=== PATIENT | female | born 1975 | race Caucasian/White ===

== ENCOUNTER 2017-05-10 22:47 | Emergency (ER) | payer MEDICAID, OTHER ==
[~2017-05-10] VITALS: Ht 160 cm; Wt 84.3 kg
[2017-05-10 22:57] VITALS: Ht 160 cm; Wt 84.3 kg
--- NOTE | 2017-05-10 23:53 | ERD ---
ER Documentation Chief Complaint Chief Complaint MOTT on l side of head HPI 41-year-old female sent in emergency department for complaints of a bump rash on the left scalp area and pain that started this morning, the patient describes the pain as sharp pain, 10/10 scale, as was upon touching the area. Patient does not have any other rash in other parts of the body. Patient did not have any head injury. Patient without any nausea or vomiting. Patient does not have any blurry vision. Patient did not take any medications to help with symptoms. Patient denies any fever or chills ROS All systems reviewed and are negative except as per history of present illness. Medications Home Meds Reported Medications [none] Unknown Strength No Conflict Check 05/10/17 Allergies Allergies: Coded Allergies: No Known Drug Allergies (Verified Allergy, Unknown, 04/29/14) PMhx/Soc Medical and Surgical Hx: pt denies Medical Hx, pt denies Surgical Hx Hx Alcohol Use: No Hx Substance Use: No Hx Tobacco Use: No Smoking Status: Never smoker FmHx Family History: No coronary disease, No diabetes, No other Physical Exam Vitals Vital Signs Date Time Temp Pulse Resp B/P Pulse Ox O2 Delivery O2 Flow Rate FiO2 05/10/17 22:57 98.3 74 16 167/93 100 Physical Exam GENERAL: The patient is well developed and appropriate for usual state of health, in no apparent distress. CHEST: Clear to auscultation bilaterally. There are no rales, wheezes or rhonchi. HEART: Regular rate and rhythm. No murmurs, clicks, rubs or gallops. No S3 or S4. ABDOMEN: Soft, nontender and nondistended. Good bowel sounds. No rebound or guarding. No gross peritonitis. No gross organomegaly or masses. No Painter sign or McBurney point tenderness. BACK: No midline or flank tenderness. EXTREMITIES: Equal pulses bilaterally. There is no peripheral clubbing, cyanosis or edema. No focal swelling or erythema. Full range of motion. Grossly neurovascularly intact. NEURO: Alert and oriented. Cranial nerves 2-12 intact. Motor strength in all 4 extremities with 5/5 strength. Sensation grossly intact. Normal speech and gait. SKIN: Vesicular rash noted in the left scalp area, tender on palpation. There is no apparent ecchymosis or petechia. The skin is warm and dry. HEMATOLOGIC AND LYMPHATIC: There is no evidence of excessive bruising or lymphedema. No gross cervical, axillary, or inguinal lymphadenopathy. Results 24 hrs Current Medications Medications (Trade) Dose Ordered Sig/Dawn Route PRN Reason Start Time Stop Time Status Last Admin Dose Admin Acetaminophen/ Hydrocodone Bitart (Bern (10/)) 1 tab ONCE ONCE PO 05/11/17 00:00 05/11/17 00:01 05/10/17 23:55 Patient was given medication for pain here in emergency department, after treatment, patient verbalized feeling much better. Patient's pain is improved. My attending physician, Dr. Lazcano, evaluated patient's rash, consistent with shingles. Patient will be treated appropriately at this time. Procedures/MDM Medical decision making: Patient symptoms was likely is consistent with herpes zoster shingles, no symptoms of any eye involvement at this time, no symptoms of any ear involvement at this time. Patient will be given acyclovir, gabapentin, Bern, was advised to follow-up with primary care doctor in 2 days for reevaluation of symptoms. Patient was advised to return to emergency department for any worsening symptoms. Disposition: Home. Stable Departure Diagnosis: Primary Impression: Herpes zoster Herpes zoster complications: without complications Qualified Code: B02.9 - Herpes zoster without complication Condition: Stable Patient Instructions: Herpes Zoster SHIRLEY LYNCH NP May 10, 2017 23:53
[2017-05-11] MEDS ORDERED: HYDROCODONE/APAP (10/325) TAB PO ONE
[2017-05-11] MEDS ORDERED: HYDR-902 PO (00:03)
[2017-05-11] MEDS ORDERED: ACYC800T57 PO (00:03)
[2017-05-11] MEDS ORDERED: IBUP-1542 PO (00:03)
[2017-05-11] MEDS ORDERED: GABA300C16 PO (00:03)
[2017-05-11 01:15] VITALS: BP 121/71; PULSE 64; RESP 16; TEMP 97.8
== END 2017-05-11 01:25 | disposition home or self-care (01) ==
LOC: FTE 22:47
DX: B02.9 Zoster without complications (principal); R40.2252 Coma scale, best verbal response, oriented, at arrival to emergency department; R40.2142 Coma scale, eyes open, spontaneous, at arrival to emergency department; R40.2362 Coma scale, best motor response, obeys commands, at arrival to emergency department
CPT/HCPCS: Z7502; Z7610; 99284

== ENCOUNTER 2017-07-21 20:54 | Emergency (ER) | END 2017-07-22 00:40 | disposition home or self-care (01) ==

== ENCOUNTER 2017-10-22 20:13 | Emergency (ER) | END 2017-10-22 22:00 | disposition home or self-care (01) ==

== ENCOUNTER 2018-02-17 13:01 | Emergency (ER) | END 2018-02-17 14:41 | disposition home or self-care (01) ==

== ENCOUNTER 2018-07-30 15:31 | Emergency (ER) | payer MEDICAID ==
[~2018-07-30] VITALS: Wt 82.8 kg
[~2018-07-30 15:31] MED LIST: ACYC800T5 PO; CEPH-443 PO; GABA300C16 PO; HYDR-3980 PO; IBUP-1542 PO; NAPR-985 PO; SULF1TAB31 PO
[2018-07-30] MEDS ORDERED: NEOM28OI2 TP (18:45)
[2018-07-30] MEDS ORDERED: DOCU-144 PO (18:45)
[2018-07-30] MEDS ORDERED: TRAM50TA2 PO (18:45)
--- NOTE | 2018-07-30 18:48 | ERD ---
ER Documentation Chief Complaint Chief Complaint PAIN ON RECTUM DURING BOWEL MOVEMENT X4 DAYS, NO BLEEDING HPI 42-year-old female presents with rectal pain with bowel movements last 4 days patient has bleeding, fevers, discharge. She denies. She admits to a history of constipation. ROS All systems reviewed and are negative except as per history of present illness. Medications Home Meds Active Scripts Tramadol HCl (Tramadol HCl) 50 Mg Tablet, 50 MG PO Q4 PRN for PAIN, #15 TAB Prov:DENISE DENISE MD 07/30/18 Docusate Sodium* (Colace*) 100 Mg Capsule, 100 MG PO BID, #30 CAP Prov:DENISE DENISE MD 07/30/18 Neomycin Turner/Bacitrac Zn/Poly (Triple Antibiotic Ointment) 28 Gm Oint...g., 28 GM TP TID for 7 Days Prov:DENISE DENISE MD 07/30/18 Naproxen* (Naprosyn*) 500 Mg Tablet, 500 MG PO BID PRN for PAIN AND/OR INFLAMMATION, #30 TAB Prov:JOAQUÍN RAND PA-C 02/17/18 Sulfamethoxazole/Trimethoprim* (Bactrim Ds* Tablet) 1 Each Tablet, 1 TAB PO BID, #14 TAB Prov:DEDRA PAYAN 10/22/17 Ibuprofen* (Motrin*) 600 Mg Tab, 600 MG PO Q6, #30 TAB Prov:DEDRA PAYAN 10/22/17 Cephalexin* (Keflex*) 500 Mg Capsule, 500 MG PO BID for 7 Days, CAP Prov:DEDRA PAYAN 10/22/17 Ibuprofen* (Motrin*) 600 Mg Tab, 600 MG PO Q6, #30 TAB Prov:ILSA WAKEFIELD-C 07/21/17 Cephalexin* (Keflex*) 500 Mg Capsule, 500 MG PO TID for 7 Days, CAP Prov:ILSA WAKEFIELD-C 07/21/17 Hydrocodone/Acetaminophen ([place] 10-325 Tablet) 1 Each Tablet, 1 TAB PO Q6H PRN for SEVERE PAIN LEVEL 7-10, #20 TAB Prov:SHIRLEY LYNCH NP 05/11/17 Ibuprofen* (Motrin*) 600 Mg Tab, 600 MG PO Q6H PRN for PAIN AND OR ELEVATED TEMP, #30 TAB Prov:SHIRLEY LYNCHMichael MCKAY 05/11/17 Gabapentin* (Gabapentin*) 300 Mg Capsule, 300 MG PO BID, #60 CAP Prov:SHIRLEY LYNCHMichael MCKAY 05/11/17 Acyclovir* (Zovirax*) 800 Mg Tablet, 800 MG PO 5 TIMES DAILY for 7 Days, TAB Prov:SHIRLEY LYNCHMichael MCKAY 05/11/17 Reported Medications [none] Unknown Strength No Conflict Check 05/10/17 Allergies Allergies: Coded Allergies: No Known Drug Allergies (Verified Allergy, Unknown, 04/29/14) PMhx/Soc History of Surgery: No Anesthesia Reaction: No Hx Neurological Disorder: No Hx Respiratory Disorders: No Hx Cardiac Disorders: No Hx Psychiatric Problems: No Hx Miscellaneous Medical Probl: No Hx Alcohol Use: Yes (occasionally) Hx Substance Use: No Hx Tobacco Use: No FmHx Family History: No diabetes, No coronary disease, No other Physical Exam Vitals Vital Signs Date Temp Pulse Resp B/P (MAP) Pulse Ox O2 O2 Flow FiO2 Time Delivery Rate 07/30/18 98.2 63 20 145/85 99 Room Air 19:06 (105) 07/30/18 98.3 71 16 150/78 99 15:42 (102) Physical Exam Const: No acute distress Head: Atraumatic Eyes: Normal Conjunctiva ENT: Normal External Ears, Nose and Mouth. Neck: Full range of motion. No meningismus. Resp: Clear to auscultation bilaterally Cardio: Regular rate and rhythm, no murmurs Abd: Soft, non tender, non distended. Normal bowel sounds. Rectal exam with cracking machine operator shows a small fissure with granulating tissue but there is no erythema, fluctuance, discharge. Skin: No petechiae or rashes Back: No midline or flank tenderness Ext: No cyanosis, or edema Neur: Awake and alert Psych: Normal Mood and Affect Procedures/MDM Patient presents with signs and symptoms of an anal fissure without signs of infection, active bleeding. Herpetic lesion is certainly a possibility although fissure appears more likely. She will be treated with topical antibiotic cream, Colace, tramadol, instructions for warm soaks, primary care follow-up and return precautions. No evidence of abscess, obstruction, additional concerning signs or symptoms. The patient was stable with no new complaints during the ER course. Clinically, there is no current evidence to suggest meningitis, sepsis, acute abdomen, pneumonia, stroke, acute coronary syndrome, pulmonary embolism, aortic dissection or any other emergent condition appearing to require further evaluation or hospitalization. Patient counseled regarding my diagnostic impression and care plan. Prior to discharge all questions answered. Pt agrees with treatment plan and understands strict return precautions. Pt is instructed to follow up with primary care provider within 24-48 hours. Precautionary instructions provided including instructions to return to the ER if not improving or for any worsening or changing symptoms or concerns. Departure Diagnosis: Primary Impression: Anal fissure Condition: Stable Patient Instructions: Anal Fissure (Child) Additional Instructions: siente en agua tibia. Examines normal hoy. Cheque otro vez con turner doctor primario en el proximo yancey or regresa para mas o nueva simptomas. DENISE DENISE MD Jul 30, 2018 18:48
[2018-07-30 19:06] VITALS: BP 145/85; PULSE 63; RESP 20
== END 2018-07-30 19:08 | disposition home or self-care (01) ==
LOC: FTE 15:31
DX: K60.2 Anal fissure, unspecified (principal)
CPT/HCPCS: 99284

== ENCOUNTER 2018-12-20 08:01 | Emergency (ER) | payer MEDICAID ==
[~2018-12-20] VITALS: Ht 162.6 cm; Wt 80.0 kg
[~2018-12-20 08:01] MED LIST changes: +BEN25 PO; +BENZ-6 PO; +DOCU-144 PO; +NEOM28OI2 TP; +PROM6.2515 PO; +PSEU-79 PO; +SILV20CR12 TOP; +TRAM50TA2 PO
[2018-12-20 08:03] VITALS: Ht 162.6 cm; Wt 80.0 kg
--- NOTE | 2018-12-20 09:21 | ERD ---
ER Documentation Chief Complaint Chief Complaint burn @ left arm HPI 43-year-old female presenting with burn to left arm. This happened 4 days ago. Patient has been applying cream to it and is become red around the area. Very itchy but not painful. No purulence. Denies other medical problems. NKDA. Surgical history denies. Social history denies ROS All systems reviewed and are negative except as per history of present illness. Medications Home Meds Active Scripts Diphenhydramine Hcl* (Benadryl*) 25 Mg Cap, 25 MG PO Q6, #30 CAP Prov:JOAQUÍN RAND PA-C 12/20/18 Cephalexin* (Keflex*) 500 Mg Capsule, 500 MG PO QID for 7 Days, CAP Prov:JOAQUÍN RAND PA-C 12/20/18 Silver Sulfadiazine* (Silvadene*) 1% - 20 Gm Cream.gm., 1 APPLIC TOP DAILY, #1 TUB Prov:JOAQUÍN RAND PA-C 12/20/18 Tramadol HCl (Tramadol HCl) 50 Mg Tablet, 50 MG PO Q4 PRN for PAIN, #15 TAB Prov:DENISE DENISE MD 07/30/18 Docusate Sodium* (Colace*) 100 Mg Capsule, 100 MG PO BID, #30 CAP Prov:DENISE DENISE MD 07/30/18 Neomycin Turner/Bacitrac Zn/Poly (Triple Antibiotic Ointment) 28 Gm Oint...g., 28 GM TP TID for 7 Days Prov:DENISE DENISE MD 07/30/18 Naproxen* (Naprosyn*) 500 Mg Tablet, 500 MG PO BID PRN for PAIN AND/OR INFLAMMATION, #30 TAB Prov:JOAQUÍN RAND PA-C 02/17/18 Sulfamethoxazole/Trimethoprim* (Bactrim Ds* Tablet) 1 Each Tablet, 1 TAB PO BID, #14 TAB Prov:DEDRA PAYAN 10/22/17 Ibuprofen* (Motrin*) 600 Mg Tab, 600 MG PO Q6, #30 TAB Prov:SCHUYLERDEDRA CONTEH 10/22/17 Cephalexin* (Keflex*) 500 Mg Capsule, 500 MG PO BID for 7 Days, CAP Prov:SCHUYLERDEDRA CONTEH 10/22/17 Ibuprofen* (Motrin*) 600 Mg Tab, 600 MG PO Q6, #30 TAB Prov:ASHUILSA RodríguezC 07/21/17 Cephalexin* (Keflex*) 500 Mg Capsule, 500 MG PO TID for 7 Days, CAP Prov:ASHUILSA-C 07/21/17 Hydrocodone/Acetaminophen ([place] 10-325 Tablet) 1 Each Tablet, 1 TAB PO Q6H PRN for SEVERE PAIN LEVEL 7-10, #20 TAB Prov:SHIRLEY LYNCH ADVERTISEMENT DISTRIBUTOR 05/11/17 Ibuprofen* (Motrin*) 600 Mg Tab, 600 MG PO Q6H PRN for PAIN AND OR ELEVATED TEMP, #30 TAB Prov:SHIRLEY LYNCH ADVERTISEMENT DISTRIBUTOR 05/11/17 Gabapentin* (Gabapentin*) 300 Mg Capsule, 300 MG PO BID, #60 CAP Prov:SHIRLEY LYNCH ADVERTISEMENT DISTRIBUTOR 05/11/17 Acyclovir* (Zovirax*) 800 Mg Tablet, 800 MG PO 5 TIMES DAILY for 7 Days, TAB Prov:SHIRLEY LYNCH ADVERTISEMENT DISTRIBUTOR 05/11/17 Reported Medications [none] Unknown Strength No Conflict Check 05/10/17 Allergies Allergies: Coded Allergies: No Known Drug Allergies (Verified Allergy, Unknown, 04/29/14) PMhx/Soc Medical and Surgical Hx: pt denies Medical Hx, pt denies Surgical Hx History of Surgery: No Anesthesia Reaction: No Hx Neurological Disorder: No Hx Respiratory Disorders: No Hx Cardiac Disorders: No Hx Psychiatric Problems: No Hx Miscellaneous Medical Probl: No Hx Alcohol Use: No Hx Substance Use: No Hx Tobacco Use: No FmHx Family History: No diabetes, No coronary disease, No other Physical Exam Vitals Vital Signs Date Temp Pulse Resp B/P (MAP) Pulse Ox O2 O2 Flow FiO2 Time Delivery Rate 12/20/18 97.5 69 18 153/70 99 08:03 (97) Physical Exam GENERAL: The patient is well-appearing, well-nourished, in no acute distress HEENT: Atraumatic. Conjunctivae are pink. Pupils equal, round, and reactive to light. There is no scleral icterus. Tympanic membranes clear bilaterally. Oropharynx clear. CHEST: Clear to auscultation bilaterally. There are no rales, wheezes or rhonchi. HEART: Regular rate and rhythm. No murmurs, clicks, rubs or gallops. EXTREMITIES: Equal pulses bilaterally. There is no peripheral clubbing, cyanosis or edema. No focal swelling or erythema. Full range of motion. Grossly neurovascularly intact. NEUROLOGIC: Alert and oriented. Cranial nerves II through XII intact. Motor strength in all 4 extremities with 5 out of 5 strength. Sensation grossly intact. SKIN: Professional burn which is healing noted to the left forearm with large wheal noted around it. No purulence or fluctuance. No lymphatic streaking. Procedures/MDM MDM: 43-year-old female presenting for burn. Patient alert to have allergic reaction surrounding the area which I do not feel looks to be infectious. Patient has an elevated we will and will be treated with supportive medications. Patient is told to put antibacterial cream on the area. Patient is told if symptoms change or worsen to return immediately to the ER. Patient is discharged with antibiotics however recommended to wait 3 to 4 days prior to taking as I believe this is associated with an allergic reaction and not infectious process. All questions answered at discharge. Departure Diagnosis: Primary Impression: Burn injury Condition: Stable Patient Instructions: Burn, Second Degree Referrals: COMM[facility] YOU HAVE RECEIVED A MEDICAL SCREENING EXAM AND THE RESULTS INDICATE THAT YOU DO NOT HAVE A CONDITION THAT REQUIRES URGENT TREATMENT IN THE EMERGENCY DEPARTMENT. FURTHER EVALUATION AND TREATMENT OF YOUR CONDITION CAN WAIT UNTIL YOU ARE SEEN IN YOUR DOCTORS OFFICE WITHIN THE NEXT 1-2 DAYS. IT IS YOUR RESPONSIBILITY TO MAKE AN APPOINTMENT FOR FOLOW-UP CARE. IF YOU HAVE A PRIMARY DOCTOR --you should call your primary doctor and schedule an appointment IF YOU DO NOT HAVE A PRIMARY DOCTOR YOU CAN CALL OUR PHYSICIAN REFERRAL HOTLINE AT IF YOU CAN NOT AFFORD TO SEE A PHYSICIAN YOU CAN CHOSE FROM THE FOLLOWING [facility] [address] [facility] [address] [facility] [address] [facility] [address] [facility] [address] [facility]. [facility] [address] Additional Instructions: FOLLOW UP WITH YOUR PRIMARY CARE PHYSICIAN TOMORROW.Return to this facility if you are not improving as expected. JOAQUÍN RAND PA-C Dec 20, 2018 09:21
== END 2018-12-20 08:42 | disposition home or self-care (01) ==
LOC: FTE 08:01
DX: T22.011A Burn of unspecified degree of right forearm, initial encounter (principal); X19.XXXA Contact with other heat and hot substances, initial encounter; Y92.9 Unspecified place or not applicable
CPT/HCPCS: 99283

== ENCOUNTER 2019-01-09 07:51 | Emergency (ER) | payer MEDICAID ==
[~2019-01-09] VITALS: Ht 162.6 cm; Wt 80.6 kg
[2019-01-09 07:52] VITALS: BP 151/86; PULSE 66; RESP 18; Ht 162.6 cm; Wt 80.6 kg
== END 2019-01-09 08:30 | disposition home or self-care (01) ==
LOC: FTE 07:51
DX: J02.9 Acute pharyngitis, unspecified (principal)
CPT/HCPCS: 99283

== ENCOUNTER 2019-03-27 19:11 | Emergency (ER) | payer SELFPAY ==
[~2019-03-27] VITALS: Ht 165.1 cm; Wt 79.6 kg
[~2019-03-27 19:11] MED LIST changes: +CETI10CA PO; +MED4DP PO
[2019-03-27 19:21] VITALS: Ht 165.1 cm; Wt 79.6 kg
[2019-03-27] MEDS ORDERED: DEXAMETHASONE 10 MG/ML 1 ML INJ IM ONE (21:30)
[2019-03-27] MEDS ORDERED: DIPHENHYDRAMINE 50 MG INJ IM ONE (21:30)
[2019-03-27 21:53] VITALS: BP 125/79; PULSE 60; RESP 16
== END 2019-03-27 21:54 | disposition home or self-care (01) ==
LOC: FTE 19:11
DX: R21 Rash and other nonspecific skin eruption (principal)
CPT/HCPCS: 96372; 99284; J1100; J1200